=== PATIENT | female | born 1955 | race Caucasian/White ===

== ENCOUNTER → 2017-02-01 | Outpatient (CLI) | payer OTHER ==
[~2017-02-01] MED LIST: ATOR20TA9 PO; BUDE10.22 INH; CALC-183 PO; COQ10 PO; GADOBUTROL 7.5 MMOL/7.5 ML PFS ONE; LEVE750T37 PO; MESA1.2T PO; MULT1TAB60 PO; OMEGA 3 PO; RED600CA2 PO; TELM40TA PO; VITA100022 PO; VITAMIN C PO; VITAMIN D3 PO; ZOLP10TA5 PO
== END | disposition home or self-care (01) ==
LOC: CFH 13:25
PROVIDERS: ATTEND Family Medicine
DX: D25.9 Leiomyoma of uterus, unspecified (principal); R90.82 White matter disease, unspecified; G40.909 Epilepsy, unspecified, not intractable, without status epilepticus; I67.9 Cerebrovascular disease, unspecified
CPT/HCPCS: 70551; 72197; A9585

== ENCOUNTER 2017-05-06 05:59 | Emergency (ER) | payer OTHER ==
[~2017-05-06] VITALS: Ht 167.6 cm; Wt 65.0 kg
[~2017-05-06 05:59] MED LIST changes: -GADOBUTROL 7.5 MMOL/7.5 ML PFS ONE
[2017-05-06] MEDS ORDERED: THIAMINE 100MG TABLET ONE (06:20)
[2017-05-06] MEDS ORDERED: LORazepam 2 MG/ML, 1ML ONE (06:21)
[2017-05-06] MEDS ORDERED: MAGNESIUM SULFATE 1 GM in SODIUM CHLORIDE 0.9% 50 ML IV ONE (06:30)
[2017-05-06] MEDS ORDERED: CHLORDIAZEPOXIDE 25 MG CAPSULE PO ONE (06:30)
[2017-05-06] MEDS ORDERED: SODIUM CHLORIDE 0.9% 1,000ML IVBOLUS ONE (06:30)
[2017-05-06] MEDS ORDERED: LORazepam 2 MG/ML, 1ML IVPush ONE (06:30)
[2017-05-06] MEDS ORDERED: MAGNESIUM SULFATE 1 GM/2 ML IVPush ONE (06:30)
[2017-05-06] MEDS ORDERED: SODIUM CHLORIDE FLUSH 10ML SYR IVF ONE (06:30)
[2017-05-06] MEDS ORDERED: CHLORDIAZEPOXIDE 25 MG CAPSULE PO PRN (06:30)
[2017-05-06] MEDS ORDERED: THIAMINE 100MG TABLET PO ONE (06:30)
[2017-05-06 06:48] LABS: HEMATOCRIT 42.3 % (34.6-47.8); HEMOGLOBIN 14.3 g/dL (11.7-16.4); WHITE BLOOD COUNT 7.4 x10^3/uL (3.4-10)
[2017-05-06 07:00] LABS: ASPARTATE AMINO TRANSFERASE 33 U/L (15-37); BLOOD UREA NITROGEN 10 mg/dL (7-18)
[2017-05-06 07:53] VITALS: BP 118/68
== END 2017-05-06 07:55 | disposition home or self-care (01) ==
LOC: ED 06:52
DX: F10.239 Alcohol dependence with withdrawal, unspecified (principal)
CPT/HCPCS: 36415; 71010; 80053; 82746; 85025; 93005; 96365; 96375; 99285; J2060; J3475; J7030

== ENCOUNTER 2019-05-18 10:43 | Emergency (ER) | payer MEDICARE, OTHER ==
[~2019-05-18] VITALS: Ht 165.1 cm; Wt 58.5 kg
[~2019-05-18 10:43] MED LIST changes: +ATOR20TA37 PO; -ATOR20TA9 PO
--- NOTE | 2019-05-18 11:55 | NUR ---
[employer] DEVELOPER: Patient to room from lobby at this time
--- NOTE | 2019-05-18 12:11 | NUR ---
C/O DIVERTICULITIS FLARE UP FOR LAST 2 MONTHS, WITH OCCASIONAL DIARRHEA. STATES PAIN AT 5, IN LOWER ABD.
--- NOTE | 2019-05-18 12:45 | NUR ---
Pt arrives to the ed with c/o of abd pain similar to her diverticulitis flares up for about 1 week. Pt denies vomitting but does have nausea and diarreah. Pt has not consumed new foods. pt denies cp/sob. Pt had no bruising on abd. Pt connected to [facility] and fall preventions measures are in place. call light in reach. awaitng further orders. Pt already provided ua.
[2019-05-18] MEDS ORDERED: ONDANSETRON 2MG/ML, 2ML ONE (12:57)
[2019-05-18] MEDS ORDERED: LORazepam 2 MG/ML, 1ML ONE (12:58)
[2019-05-18] MEDS ORDERED: HYDROmorphone 2 MG/ML, 1ML IVPush PRN (13:00)
[2019-05-18] MEDS ORDERED: ONDANSETRON 2MG/ML, 2ML IVPush ONE (13:00)
[2019-05-18] MEDS ORDERED: LORazepam 2 MG/ML, 1ML IVPush ONE (13:00)
[2019-05-18] MEDS ORDERED: SODIUM CHLORIDE FLUSH 10ML SYR IVF ONE (13:00)
[2019-05-18 13:06] LABS: BASOPHILS # (AUTO) 0.01 x10^3/uL (0-0.1); BASOPHILS % (AUTO) 0 % (0-1); EOSINOPHILS # (AUTO) 0.08 x10^3/uL (0-0.4); EOSINOPHILS % (AUTO) 1 % (1-7); LYMPHOCYTES # (AUTO) 1.21 x10^3/uL (1-3.4); LYMPHOCYTES % (AUTO) 17 % (22-44); MD NO; MEAN CORPUSCULAR HEMOGLOBIN 32.8 pg (27.0-34.8); MEAN CORPUSCULAR HGB CONC 33.8 g/dL (32.4-35.8); MEAN CORPUSCULAR VOLUME 97.3 fL (80-100); MEAN PLATELET VOLUME 7.9 fL (7.4-10.4); MONOCYTES # (AUTO) 0.36 x10^3/uL (0.2-0.8); MONOCYTES % (AUTO) 5 % (2-9); NEUTROPHILS # (AUTO) 5.47 x10^3/uL (1.8-6.8); NEUTROPHILS % (AUTO) 77 % (42-75); PLATELET COUNT 271 x10^3/uL (130-400); RED BLOOD COUNT 4.38 x10^6/uL (3.82-5.3); RED CELL DISTRIBUTION WIDTH 12.3 % (9.6-15.2)
--- NOTE | 2019-05-18 13:07 | NUR ---
IV START. MEDS ADMINSITERED PER NOV.
[2019-05-18 13:08] LABS: MICROSCOPIC INDICATED
[2019-05-18 13:09] LABS: CULTURE INDICATED? YES
[2019-05-18 13:18] LABS: ALANINE AMINOTRANSFERASE 37 U/L (12-78); ALBUMIN 4.1 g/dL (3.4-5.0); ANION GAP 9 mmol/L (5-15); CALCIUM 9.6 mg/dL (8.5-10.1); CHLORIDE 107 mmol/L (98-107); CREATININE 0.51 mg/dL (0.55-1.02)
[2019-05-18 13:20] LABS: ALKALINE PHOSPHATASE 60 U/L (45-117); BILIRUBIN,TOTAL 0.8 mg/dL (0.2-1.0); TOTAL PROTEIN 7.5 g/dL (6.4-8.2)
[2019-05-18] MEDS ORDERED: HYDROmorphone 1 MG/ML, 1ML VIAL ONE (13:32)
--- NOTE | 2019-05-18 13:37 | NUR ---
ATIVAN EFFECTIVE. PT STILL IN PAIN, REQUESTS DILAUDID AT THIS TIME.
[2019-05-18] MEDS ORDERED: POTASSIUM CHLORIDE 20 MEQ TAB.ER.PRT PO ONE ×2 (14:00→15:30)
--- NOTE | 2019-05-18 14:11 | NUR ---
PAIN MEDS EFFECTIVE, PT STATES PAIN AT 2.
[2019-05-18] MEDS ORDERED: POTASSIUM CHLORIDE 20 MEQ TAB.ER.PRT ONE ×2 (14:14→15:32)
--- NOTE | 2019-05-18 14:41 | NUR ---
PT TAKEN TO CT
[2019-05-18 15:11] VITALS: BP 137/74
--- NOTE | 2019-05-18 15:29 | NUR ---
ALL RESULTS BACK AT THIS TIME. CHART UP FOR RECHECK.
== END 2019-05-18 16:00 | disposition home or self-care (01) ==
LOC: ED 12:51
DX: E87.6 Hypokalemia (principal); R10.30 Lower abdominal pain, unspecified; R10.32 Left lower quadrant pain; R10.31 Right lower quadrant pain; I10 Essential (primary) hypertension; J44.9 Chronic obstructive pulmonary disease, unspecified
CPT/HCPCS: 36415; 74177; 80053; 81001; 83605; 83690; 85025; 87040; 87086; 96374; 96375; 99284; J1170; J2060; J2405

== ENCOUNTER → 2019-10-15 | Outpatient (CLI) | payer MEDICARE, OTHER ==
[~2019-10-15] MED LIST changes: +OMEG-170 PO; +OMEP-110 PO; +PARO10TA3 PO
[2019-10-15 14:34] LABS: ALBUMIN 4.1 g/dL (3.4-5.0); ANION GAP 10 mmol/L (5-15); CALCIUM 9.4 mg/dL (8.5-10.1); CHLORIDE 108 mmol/L (98-107)
[2019-10-15 14:38] LABS: ALANINE AMINOTRANSFERASE 39 U/L (12-78); ALKALINE PHOSPHATASE 71 U/L (45-117); BILIRUBIN,TOTAL 0.6 mg/dL (0.2-1.0); CREATININE 0.56 mg/dL (0.55-1.02); TOTAL PROTEIN 7.9 g/dL (6.4-8.2)
== END | disposition home or self-care (01) ==
LOC: STAR 13:10
PROVIDERS: ATTEND Orthopaedic Surgery
DX: Z01.818 Encounter for other preprocedural examination (principal); S83.281A Other tear of lateral meniscus, current injury, right knee, initial encounter; S83.251D Bucket-handle tear of lateral meniscus, current injury, right knee, subsequent encounter; S83.27 Complex tear of lateral meniscus, current injury; X58.XXXA Exposure to other specified factors, initial encounter; Y93.89 Activity, other specified; Y92.89 Other specified places as the place of occurrence of the external cause; Y99.8 Other external cause status; Z88.5 Allergy status to narcotic agent
CPT/HCPCS: 36415; 80053; 93005

== ENCOUNTER 2019-10-21 08:56 | Day surgery (SDC) | payer MEDICARE, OTHER ==
[~2019-10-21] VITALS: Ht 167.6 cm; Wt 59.3 kg
[~2019-10-21 08:56] MED LIST changes: +LIDOCAINE 1%-EPI 1:100K, 20ML ONE; +ROPIvacaine/PF 0.5%, 30 ML ONE
[2019-10-21] MEDS ORDERED: PROPOFOL 50 ML ONE ×2 (09:17→10:01)
[2019-10-21 09:21] VITALS: BP 153/93
[2019-10-21] MEDS ORDERED: ALBUTEROL/IPRATROPIUM 2.5MG/0.5MG, 3 ML NPPB PRN (09:30)
[2019-10-21] MEDS ORDERED: PROMETHAZINE 25 MG/ML, 1ML IV PRN (09:30)
[2019-10-21] MEDS ORDERED: OXYcodone 5 MG/5 ML ORAL.SOL UDC PO PRN (09:30)
[2019-10-21] MEDS ORDERED: HYDROmorphone 2 MG/ML, 1ML IVPush PRN (09:30)
[2019-10-21] MEDS ORDERED: hydrALAzine 20 MG/ML, 1ML IV PRN (09:30)
[2019-10-21] MEDS ORDERED: MEPERIDINE/PF 25MG/ML,1ML IVPush PRN (09:30)
[2019-10-21] MEDS ORDERED: LACTATED RINGERS 1,000 ML IV SCH (09:34)
[2019-10-21] MEDS ORDERED: ONDANSETRON 2MG/ML, 2ML ONE (10:00)
[2019-10-21] MEDS ORDERED: PROPOFOL 10 MG/ML, 20ML ONE (10:00)
[2019-10-21] MEDS ORDERED: CEFAZOLIN 1,000 MG ONE (10:00)
[2019-10-21] MEDS ORDERED: DEXAMETHASONE 4 MG/ML, 1ML ONE (10:00)
[2019-10-21] MEDS ORDERED: FENTANYL PF 250 MCG/5ML ONE (10:01)
[2019-10-21] MEDS ORDERED: MIDAZOLAM 1 MG/ML, 2ML ONE (10:01)
[2019-10-21] MEDS ORDERED: FENTANYL PF 100 MCG/2ML ONE (10:31)
[2019-10-21] MEDS ORDERED: OXYcodone 5 MG/5 ML ORAL.SOL UDC ONE (10:31)
[2019-10-21] MEDS: FENTANYL PF 100 MCG/2ML IV PRN ×3 (10:32→10:42)
[2019-10-21] MEDS ORDERED: MEPERIDINE/PF 25MG/ML,1ML ONE ×2 (10:51→11:11)
== END 2019-10-21 13:10 | disposition home or self-care (01) ==
LOC: OUT 08:56
PROVIDERS: ATTEND Orthopaedic Surgery
DX: S83.251A Bucket-handle tear of lateral meniscus, current injury, right knee, initial encounter (principal); S83.241A Other tear of medial meniscus, current injury, right knee, initial encounter; M22.41 Chondromalacia patellae, right knee; I10 Essential (primary) hypertension; G40.909 Epilepsy, unspecified, not intractable, without status epilepticus; J45.909 Unspecified asthma, uncomplicated; M81.0 Age-related osteoporosis without current pathological fracture; Z79.899 Other long term (current) drug therapy; Z88.5 Allergy status to narcotic agent; Z98.890 Other specified postprocedural states; Z82.3 Family history of stroke; Z82.49 Family history of ischemic heart disease and other diseases of the circulatory system; X58.XXXA Exposure to other specified factors, initial encounter; Y93.41 Activity, dancing; Y92.89 Other specified places as the place of occurrence of the external cause; Y99.8 Other external cause status
CPT/HCPCS: 29880; J0690; J1100; J2175; J2250; J2405; J2704; J2795; J3010; J3490; J7120

== ENCOUNTER 2021-03-13 13:18 | Emergency (ER) | payer MEDICARE, OTHER ==
[~2021-03-13] VITALS: Ht 167.6 cm; Wt 60.3 kg
[~2021-03-13 13:18] MED LIST changes: -LIDOCAINE 1%-EPI 1:100K, 20ML ONE; +MULT-449 PO; -MULT1TAB60 PO; -ROPIvacaine/PF 0.5%, 30 ML ONE
--- NOTE | 2021-03-13 14:12 | NUR ---
PT TO ROOM FROM LOBBY
--- NOTE | 2021-03-13 14:48 | NUR ---
[facility]
[2021-03-13] MEDS ORDERED: SODIUM CHLORIDE 0.9% 1,000ML IVBOLUS ONE (15:30)
[2021-03-13] MEDS ORDERED: HYDROmorphone 1 MG/ML, 1ML INJ IV ONE (15:30)
[2021-03-13] MEDS ORDERED: SODIUM CHLORIDE FLUSH 10ML SYR IVF ONE (15:30)
[2021-03-13] MEDS ORDERED: ONDANSETRON 2MG/ML, 2ML IVPush ONE (15:30)
[2021-03-13 15:34] LABS: BASOPHILS % (AUTO) 0 % (0-1); EOSINOPHILS % (AUTO) 2 % (1-7); LYMPHOCYTES % (AUTO) 16 % (22-44); MEAN CORPUSCULAR HEMOGLOBIN 31.1 pg (27.0-34.8); MEAN CORPUSCULAR HGB CONC 33.8 g/dL (32.4-35.8); MEAN PLATELET VOLUME 7.6 fL (7.4-10.4); MONOCYTES % (AUTO) 7 % (2-9); NEUTROPHILS % (AUTO) 75 % (42-75); PLATELET COUNT 329 x10^3/uL (130-400); RED CELL DISTRIBUTION WIDTH 13.5 % (9.6-15.2)
[2021-03-13 15:46] LABS: ALANINE AMINOTRANSFERASE 31 U/L (12-78); ALBUMIN 3.9 g/dL (3.4-5.0); ANION GAP 4 mmol/L (5-15); CALCIUM 9.3 mg/dL (8.5-10.1); CHLORIDE 109 mmol/L (98-107); CREATININE 0.46 mg/dL (0.55-1.02)
[2021-03-13] MEDS ORDERED: HYDROmorphone 1 MG/ML, 1ML INJ ONE (15:47)
[2021-03-13 15:48] LABS: ALKALINE PHOSPHATASE 80 U/L (45-117); BILIRUBIN,TOTAL 0.4 mg/dL (0.2-1.0); TOTAL PROTEIN 7.6 g/dL (6.4-8.2)
[2021-03-13] MEDS ORDERED: ONDANSETRON 2MG/ML, 2ML ONE (15:48)
--- NOTE | 2021-03-13 16:05 | NUR ---
PT UP TO BATHROOM WITH A STEADY GAIT. UA PROVIDED. MEDICATED PER EMAR.
[2021-03-13 16:19] LABS: MICROSCOPIC INDICATED
[2021-03-13] MEDS ORDERED: OMNIPAQUE 350 MG/ML, 100ML BOTTLE ONE (17:07)
[2021-03-13 18:14] VITALS: BP 138/88
--- NOTE | 2021-03-13 18:29 | NUR ---
Patient given discharge instructions and they have confirmed that they understand the instructions. Patient ambulatory with steady gait. NAD, all questions answered appropriately, denies additional needs at this time. No personal belongings left in room after discharge.
== END 2021-03-13 18:55 | disposition home or self-care (01) ==
LOC: ED 13:48
DX: R10.32 Left lower quadrant pain (principal); R19.7 Diarrhea, unspecified; R11.0 Nausea; I10 Essential (primary) hypertension; J44.9 Chronic obstructive pulmonary disease, unspecified
CPT/HCPCS: 36415; 71045; 74177; 80053; 81001; 83605; 83690; 85025; 87086; 96361; 96374; 96375; 99285; J1170; J2405; J7030; Q9967